=== PATIENT | female | born 1965 | race Caucasian/White ===

== ENCOUNTER 2025-04-30 11:19 | Emergency (ER) | payer BC, SELFPAY ==
--- OUTSIDE RECORDS SUMMARY | 2025-04-30 11:22 | XMS_ITS | Clinical Summary ---
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 [email or web address] Allergies Active Allergy Reactions Criticality Noted Date Comments Atorvastatin Other, see comments 08/12/2015 leg pain Lisinopril Cough 01/12/2007 Penicillins Rash 06/11/2003 Medications * This document contains information received from the source organization and may not represent a complete record from that organization. Multiple Vitamins-Minerals (MULTIVITAMIN OR) Take 1 tablet by mouth daily (every 24 hours). 05/08/20 04 Active Cholecalciferol 2000 UNITS Take 1 Capsule (2,000 Units) by mouth daily. 01/04/20 12 Active blood glucose calibration low (SURECHEK CONTROL SOLUTION) LOW liquidIndications: Type II or unspecified type diabetes mellitus without mention of complication, not stated as uncontrolled (HRC) To calibrate meter 1 each 3 03/10/20 13 Active FREESTYLE lancets Use 1 Each to test daily. 100 Each 11 07/21/20 18 Active magnesium oxide (AKA MAG-OX) 500 MG tablet Take 1 Tablet (500 mg) by mouth daily. Active acetaminophen (TYLENOL) 500 MG tablet Take 1-2 Tablets by mouth every 6 hours as needed for Pain. 03/07/20 21 Active Cinnamon 500 MG Take 4 Capsules (2,000 mg) by mouth. Active Multiple Vitamin (MULTI-VITAMIN) tablet Take 1 Tablet by mouth daily. Active [place]-3 Fatty Acids (FISH OIL) 1000 MG capsule Take 1 Capsule (1,000 mg) by mouth. Active medical cannabis patient certifiedIndicatio ns:Acute right hip pain,History of fall,Neuropathic pain syndrome (non-herpetic),Camron n in both lower extremities,Pain in both hands,Left foot drop,Medical marijuana use Take as instructed .. Active CANNABIDIOL OR Take 1 Capsule by mouth every 24 hours as needed. Active chlorhexidine gluconate (PERIDEX) 0.12 % solution Take by mouth. 01/28/20 24 Active fluticasone propionate (FLONASE) 50 MCG/ACT nasal solutionIndication s:Nasal congestion Place 2 Sprays into both nostrils daily. 16 g 11 02/11/20 24 Active ezetimibe (ZETIA) 10 MG tabletIndications: High cholesterol Take 1 Tablet (10 mg) by mouth daily. 90 Tablet 3 06/05/20 24 025 Active semaglutide (OZEMPIC, 1 MG/DOSE,) 4 MG/3ML injectionIndicatio ns:Class 1 obesity due to excess calories with serious comorbidity and body mass index (BMI) of 32.0 to 32.9 in adult ([facility]),Type 2 diabetes mellitus without complication, without long-term current use of insulin ([facility]) Inject 1 mg subcutaneously once every week. 3 mL 6 06/05/20 24 Active levothyroxine (SYNTHROID) 112 MCG tabletIndications: Hypothyroidism, unspecified type ([facility]),Acquired hypothyroidism ([facility]) Take 1 Tablet (112 mcg) by mouth daily. 90 Tablet 3 06/05/20 24 Active buPROPion (WELLBUTRIN XL) 300 MG 24 hour release tabletIndications: Major depressive disorder, single episode, mild ([facility]),Class 1 obesity due to excess calories with serious comorbidity and body mass index (BMI) of 32.0 to 32.9 in adult (HRC) TAKE 1 TABLET BY MOUTH EVERY MORNING 90 Tablet 3 06/05/20 24 Active dilTIAZem CD (CARTIA XT) 120 MG 24 hour release capsuleIndications :Essential hypertension (HRC) Take 1 Capsule (120 mg) by mouth daily. 90 Capsule 3 06/05/20 24 Active empagliflozin (JARDIANCE) 10 MG tabletIndications: Stage 3b chronic kidney disease (HRC),Type 2 diabetes mellitus without complication, without long-term current use of insulin (HRC) Take 1 Tablet (10 mg) by mouth daily. 90 Tablet 3 06/05/20 24 Active DULoxetine (CYMBALTA) 60 MG capsuleIndications :Major depressive disorder, single episode, mild (HRC),Other polyneuropathy Take 1 Capsule (60 mg) by mouth daily. 90 Capsule 3 06/05/20 24 025 Active losartan (COZAAR) 100 MG tabletIndications: Essential hypertension (HRC),Stage 3b chronic kidney disease (HRC) Take 1 Tablet (100 mg) by mouth daily. 90 Tablet 3 06/05/20 24 025 Active pregabalin (LYRICA) 50 MG capsuleIndications :Neuropathic Pain Take 1 Capsule (50 mg) by mouth two times a day AND 2 Capsules (100 mg) daily at bedtime. Indications: Neuropathic Pain. 120 Capsule 5 10/06/20 24 Active blood glucose (FREESTYLE LITE) test stripIndications:I mpaired glucose tolerance test USE TEST STRIPS TO CHECK BLOOD GLUCOSE ONCE DAILY 100 Strip 3 12/17/19 Active Active Problems Problem Noted Date Diagnosed Date Paresthesia of both lower extremities 11/03/2024 Paresthesia of both hands 11/03/2024 Left foot drop 06/02/2023 High blood triglycerides 02/01/2023 Peripheral neuropathy 02/01/2023 Balance disorder 08/14/2022 Ambulates with cane 08/14/2022 Stage 3b chronic kidney disease 02/04/2022 Major depressive disorder, single episode, mild 10/14/2021 Neuropathic pain of lower extremity 12/24/2020 Adverse effect of statin 12/24/2020 Anticardiolipin antibody positive 07/21/2018 Overview (07/21/2018): Was tested when she was preg with her daughter LISA (obstructive sleep apnea) 01/29/2017 Raynaud phenomenon 06/08/2014 Essential hypertension 03/24/2003 Overview (06/09/2017): Hypertension Hypothyroidism 03/24/2003 Overview (06/09/2017): Hypothyroidism Acquired Obesity 03/24/2003 Type 2 diabetes mellitus wit h diabetic chronic kidney disease Hypertensive chronic kidney disease with stage 1 through stage 4 chronic kidney disease, or unspecified chronic kidney disease Resolved Problems Problem Noted Date Diagnosed Date Resolved Date Renal insufficiency 07/16/2021 02/05/20 22 Endometrial hyperplasia with atypia 03/07/2021 07/16/2021 Pelvic mass 02/10/2021 07/16/2021 Overview (02/10/2021): Added automatically from request for surgery [id number] Hx of herpes genitalis 12/24/202006/05 Complex endometrial hyperpla kay without atypia 12/24/2020 07/16/2021 Iron deficiency 04/28/2019 06/05/2024 Herpes simplex virus (HSV) infection 2007 12/24/2020 Overview (06/09/2017): LW Onset: 1979 ; Herpes Simplex Labialis Sleep apnea 12/07/2005 05/14/2014 Overview (06/09/2017): [facility] Mod[facility] LW Onset: [id number] ; Obstructive Sleep Apnea Hypopnea Impaired glucose tolerance test 08/17/2005 03/17/2017 Overview (06/09/2017): LW Onset: [id number] ; Glucose Intolerance (Impaired Tolerance) Female genital symptoms 07/24/200411/19 Overview (06/09/2017): LW Onset: 84Den23 ; Pelvic Pain Female Encounters Date Type Department Care Team Description 02/09/2025 9:30 AM CDT Office Visit [facility] [address] [address] Juju Freedman A, OD Type 2 diabetes mellitus without complication, without long-term current use of insulin (HRC) (Primary Dx); Examination of eyes and vision; Myopia with astigmatism and presbyopia, bilateral; Age-related nuclear cataract of both eyes 02/09/2025 Telephone [facility] [address] [address] Tia Hernández, PADeshaunC Prior Authorization For Medication (empagliflozin (JARDIANCE) 10 MG tablet/) from Last 3 Months Immunizations Immunization Administration Dates Next Due Flu Vac (3+ yrs) 08/01/2012,08/04/2010 Flu Vac Preserv Free (3+yrs) 08/01/2012,07/13/20 09 HepB Adult (Engerix-B, 20+ y rs, 3 dose series) 12/05/2018,07/21/2018,03/10/2018 Influenza (Flucelvax), Prese rv Free QIV 08/19/2023 Influenza IIV4 (Quadrivalent ) 0.5mL ([id number]) 08/17/2022,07/16/2021,06/26/2020,2018,07/21/2018,10/06/2017,08/22/2016 Influenza ccIIV3 6 months+ (Flucelvax) 07/21/2024 PCV20 ([id number]) 02/04/2022 PPSV23 (Pneumovax) 10/06/2017 Pfizer Bivalent 12+ 08/17/2022 Pfizer COVID-19 12+ 07/21/2024,08/19/2023 Pfizer Monovalent 12+ Purple Top 11/26/2021,05/0 05/2021,02/01/2021 TDAP (ADACEL) 06/09/2006 TDAP (BOOSTRIX) 03/05/2016 Zoster RZV (Shingrix) 11/03/2021,08/15/2021 Family History Medical History Relation Name Comments Cataract Father Dad Diabetes Father Dad Heart Disease Father Dad High Blood Pressure Father Dad Hypertension Father Dad Neuropathy Father Dad Cataract Mother Mom Depression Mother Mom Mental Disorder Mother Mom Hypertension Brother 1 Enzo Hypertension Brother 2 Jose Carlos Hypertension Brother 3 Will No Known Problems Daughter Jada Cancer Paternal Uncle Dad Hypertension Sister 1 Shanelle Tovar Wal[place] Neuropathy Sister 1 Shanelle Tovar [place] Diabetes Sister 2 Kathrin Hypertension Sister 2 Kathrin Amblyopia/Strabismus Negative Family History Cancer, Breast Negative Family History Cancer, Ovary Negative Family History Glaucoma Negative Family History Macular Degeneration Negative Family History Retinal Detachment Negative Family History Relation Name Status Comments Father Dad Mother Mom Brother 1 Enzo Alive Brother 2 Jose Carlos Alive Brother 3 Will Alive Daughter Jada Alive Paternal Uncle Dad Sister 1 Shanelle Tovar Ronyalfonso Alive Sister 2 Kathrin Social History Tobacco Use Types Packs/Day Years Used Date Smoking Tobacco: Former Cigarettes 1 - 02/20/2014 Smokeless Tobacco: Former Quit: 02/20/2014 Tobacco Cessation:Counseling Given: Not Answered Comments:Smoking History Packs/day: Alcohol Use Standard Drinks/Week Comments Not Currently 1 (1 standard drink = 0.6 oz pure alcohol) I have a drink every once in awhile AUDIT-C Answer Date Recorded Q1: How often do you have a drink containing alc ohol? 2-4 times a month 2020 Q2: How many drinks containi ng alcohol do you have on a typical day when you are drinking? 1 or 2 2020 Frequency of Binge Drinking Not on file 05/2020 PHQ-2 Answer Date Recorded PHQ-2 Score 1 06/05/2024 Hunger Vital Sign Answer Date Recorded Within the past 12 months, y ou worried that your food would run out before you got the money to buy more. Never true 06/04/20 24 Within the past 12 months, t he food you bought just didn't last and you didn't have money to get more. Never true 06/04/2024 PRAPARE - Transportation Answer Date Re corded In the past 12 months, has l ack of transportation kept you from medical appointments or from getting medications? No 05/18 In the past 12 months, has l ack of transportation kept you from meetings, work, or from getting things needed for daily living? No 06/04/2024 Housing Stability Vital Sign Answer Hernan e Recorded In the last 12 months, was t here a time when you were not able to pay the mortgage or rent on time? No 06/04/2024 In the past 12 months, how m any times have you moved where you were living? 0 06/04/2024 At any time in the past 12 m [facility], were you homeless or living in a long term (including now)? No 06/04/2024 Comments No Sex and Gender Information Value Date Recorded Sex Assigned at Not on file Legal Sex Female 4:44 AM CDT Gender Identity Not on file Sexual Orientation Not on file Occupation Industry Job Start Date Job End Date [employer] 3 Not on file Not on file Not on file Last Filed Vital Signs Vital Sign Reading Time Taken Comments Blood Pressure 110/78 06/05/2024 9:52 AM CDT Pulse 73 06/05/2024 9:52 AM CDT Temperature 36.8 C (98.2 F) 03/08/2021 2:01 PM CDT Respiratory Rate 14 05/01/2022 8:47 AM CDT Oxygen Saturation 97% 02/11/2024 9:48 AM CDT Inhaled Oxygen Concentration - - Weight 73.5 kg (162 lb) 06/05/2024 9:52 AM CDT Height 163.8 cm (5' 4.5) 06/05/2024 9:52 AM CDT Body Mass Index 27.38 06/05/2024 9:52 AM CDT Plan of Treatment Upcoming Encounters Date Type Department Care Team (Late st Contact Info) Description 05/08/2025 4:10 PM CDT Appointment [facility] [address] [place] [phone] 05/21/2025 1:50 PM CDT Appointment [facility] [address] [place], [place] [phone] Oscar Johnston MD [address] [facility] [address] [place], [place] [id number] 06/11/2025 10:00 AM CDT Appointment [facility] [address] [place] [phone] Tia Hernández PADeshaunC [address] [place] [address] Health Maintenance Due Date Last Done Comments Colonoscopy 01/17/2024 01/16/2019 Cervical Cancer Screening 10/12/20242018, 10/12/2019, 05/14/2014, Additional history exists Diabetes: Creatinine 04/21/2025 04/21/2024, 02/01/2023, 01/22/2023, Additional history exists Diabetes: Urine Microalbumin 04/22/202503/2024, 01/28/2023, 02/04/2022, Additional history exists Mammogram 04/24/2025 04/24/2024, 09/18, 08/06/2021, Additional history exists Diabetes: HGBA1C 05/06/2025 11/06/2024, 07/2024, 01/24/2024, Additional history exists Adult Preventive Visit 06/05/2025 , 06/02/2023, 02/04/2022, Additional history exists Diabetes: Foot Exam 06/05/2025 06/05/2024 ( Completed), 06/02/2023 (Completed), 02/04/2022 (Completed), Additional history exists Influenza Vaccine (#1) 2025 , 08/19/2023, 08/17/2022, Additional history exists Diabetes: Eye Exam 02/09/2026 02/09/2025, 0 02/09/2025, 04/24/2024, Additional history exists DTaP/Tdap/Td Vaccine (3 - Tdap) 03/05/2026 03/05/2016, 06/09/2006 Diabetes: Lipid Panel 11/06/2029 11/06/2024 , 05/27/2024, 06/22/2023, Additional history exists RSV Vaccine (1 - 1-dose 75+ series) 2039 HIV Screening (Preventive Services) Completed 10/06/2017 Hep C Screening (Preventive Services) Completed 10/06/2017 HepB Vaccine Completed 12/05/2018, 1001/2018, 03/10/2018 Zoster/Shingles Vaccine Completed 11/03/2021, 08/15 Pneumococcal Vaccine 50+ Yrs Completed 02/04/2022, 10/06/2017 COVID-19 Vaccine Completed 07/21/2024, 11/2022, 08/17/2022, Additional history exists HepA Vaccine Aged Out No longer eligi ble based on patient's age to complete this topic Hib Vaccine Aged Out No longer eligi ble based on patient's age to complete this topic IPV (Polio) Vaccine Aged Out No longe r eligible based on patient's age to complete this topic MCV4 Vaccine Aged Out No longer eligi ble based on patient's age to complete this topic Meningococcal B Vaccine Aged Out No l onger eligible based on patient's age to complete this topic Procedures Procedure Name Priority Date/Time Associated Diagnosis Comments LIPID PANEL & DIRECT LDL (IF NEEDED) Routine 11/06/2024 9:03 AM FINISHED STOCK INSPECTOR High cholesterol High blood triglycerides (HRC) HGB A1C Routine 11/06/2024 9:03 AM FINISHED STOCK INSPECTOR Type 2 diabetes mellitus without complication, without long-term current use of insulin (HRC) MM MAMMOGRAM SCREENING BILAT W 3D GRAYSON W CAD Routine 04/24/2024 1:35 PM CDT Encounter for screening mammogram for malignant neoplasm of breast ALBUMIN/CREAT RATIO Routine 04/22/2024 10:00 AM CDT Stage 3b chronic kidney disease (HRC) RENAL FUNCTION PANEL Routine 04/21/2024 4:16 PM CDT Stage 3b chronic kidney disease (HRC) CYTOLOGY (PAP) Routine 10/12/2019 3:17 PM FINISHED STOCK INSPECTOR Pap smear for cervical cancer screening ENDOSCOPY, COLON, SCREENING/DIAGNOS TIC Routine 01/16/2019 8:40 AM CDT Other iron deficiency anemia HIV 1/2 AG/AB 4TH GEN Routine 10/06/2017 9:58 AM FINISHED STOCK INSPECTOR Screening for HIV (human immunodeficiency virus) HEPATITIS C ANTIBODY, WITH REFLEX (ANTI-HCV) Routine 10/06/2017 9:58 AM [facility] Need for hepatitis C screening test from Last 3 Months or Most Recently Relevant to Health Maintenance Results * Lipid Panel & Direct LDL (if Needed) (11/06/2024 9:03 AM [facility]) Cholesterol 177 0 - 199 mg/dL 11/06/2024 3:55 PM [facility] Triglyceride 142 <=149 mg/dL 11/06/2024 3:55 PM [facility] HDL Cholesterol 45 >=40 mg/dL 3:55 PM [facility] LDL, Calculated 104 <130 mg/dL 3:55 PM [facility] Non HDL Chol, Calculated 132 <=159 mg/dL 11/06/2024 3:55 PM [facility] Cholesterol/HDL Ratio 3.9 <=5.0 11/06/2024 3:55 PM [facility] Hours Fasting 0.0 8 - 12 Hours 11/06/2024 3:55 PM [facility] Blood Venipuncture / Unknown 11/06/2024 9:03 AM FINISHED STOCK INSPECTOR 11/06/2024 9:03 AM [facility] Tia Hernández PA-C LAB_1 Final Result [facility] [address] [place] [address], [facility] * (ABNORMAL) Hgb A1C (11/06/2024 9:03 AM [facility]) Hemoglobin A1C 5.9(H) <=5.6 % 11/06/2024 5:42 PM [facility] Estimated Average Glucose (Calc) 123 < 117 mg/dL 11/06/2024 5:42 PM [facility] Comment:Estimated average gl ucose (eAG) converts A1c into glucose units (mg/dL) and estimates average glucose over the past approximately 3 months. The eAG reference interval (<117 mg/dL) corresponds to an A1c of <5.7%. Blood Venipuncture / Unknown 11/06/2024 9:03 AM FINISHED STOCK INSPECTOR 11/06/2024 9:03 AM FINISHED STOCK INSPECTOR Narrative [facility] - 11/06/2024 5:42 PM FINISHED STOCK INSPECTOR For patients not previously diagnosed with diabetes: 5.7-6.4%: Increased risk for diabetes 6.5% and greater: Diagnostic for diabetes For patients diagnosed with diabetes: <8.0%: Goal of therapy for ages 18-75 Clinicians may recommend a higher or lower goal for specific individuals. Tia Hernández PA-C LAB_1 Final Result [facility] [address] * MM Mammogram Screening Bilat W 3D [place] W CAD (04/24/2024 1:35 PM CDT) Anatomical Region Laterality Modality Breast Bilateral Mammography Impressions 04/24/2024 2:25 PM CDT : ACR BI-RADS Category 1: Negative RECOMMENDATION: Follow Up Imaging in 12 months - Bilateral The results and recommendations of this examination will be communicated to the patient. Narrative 04/24/2024 2:25 PM CDT MM MAMMOGRAM SCREENING BILAT W 3D GRAYSON W CAD performed on 04/24/24 Compared to: 10/13/2022 MM Mammogram Screening Bilat W CAD, 08/06/2021 MM Mammogram Screening Bilat W CAD, and 06/10/2020 MM Mammogram Screening Bilat W CAD FINDINGS: Bilateral screening mammogram was performed with the assistance of Computer-Aided Detection and breast tomosynthesis. There are scattered areas of fibroglandular density. There is no radiographic evidence of malignancy. Tia Hernández PA-C RAD MARÍA Final Result * Albumin/Creatinine Ratio,Random Urine (04/22/2024 10:00 AM CDT) Albumin/Creati nine Ratio, Urine, Random 7 <30 mg/g 04/22/2024 11:50 AM T [facility] Albumin, Urine, Random 3.6 mg/L 04/22/2024 11:50 AM T [facility] Creatinine, Urine, Random 50 >20 mg/dL mg/dL 04/22/2024 11:[address] [facility] Urine Non-blood Collection / Unknown 04/22/2024 10:00 AM CDT 04/22/2024 10:44 AM CDT us Not On File Provider LAB_1 Final Resul t [facility] [address] [place] [address] * (ABNORMAL) Renal Function Panel (04/21/2024 4:16 PM CDT) Sodium 140 136 - 145 mmol/L 04/22/2024 10:[address] [facility] Potassium 4.5 3.5 - 5.1 mmol/L 04/22/2024 10:[address] [facility] Chloride 100 98 - 109 mmol/L 04/22/2024 10:[address] [facility] CO2 29 20 - 29 mmol/L 04/22/2024 10:[address] [facility] Anion Gap 11 6 - 16 mmol/L 04/22/2024 10:[address] [facility] Calcium 9.8 8.4 - 10.4 mg/dL 04/22/2024 10:[address] [facility] BUN 16 7 - 26 mg/dL 04/22/2024 10:[address] [facility] Creatinine 1.60(H) 0.55 - 1.02 mg/dL 04/22/2024 10:[address] [facility] Albumin 3.9 3.5 - 5.0 g/dL 04/22/2024 10:[address] [facility] Phosphorus 4.0 2.3 - 4.7 mg/dL 04/22/2024 10:[address] [facility] Glucose 77 70 - 100 mg/dL 04/22/2024 10:[address] [facility] Comment:The given reference range is for the fasting state. Non-fasting reference range for glucose is 70 - 180 mg/dL. GFR, Estimated 37(L) >60 mL/min/1.7 3m2 04/22/2024 10:[address] [facility] Hours Fasting 9.0 8 - 12 Hours 04/22/2024 10:38 AM CDT [facility] Blood Venipuncture / Unknown 04/21/2024 4:16 PM CDT 04/21/2024 4:16 PM CDT us Not On File Provider LAB_1 Final Resul t [facility] [address] [place] [address] [address] [place] [address] * PAP Test (10/12/2019 3:17 PM FINISHED STOCK INSPECTOR) Case Report Pap Case: [id number] Authorizing Provider: Vilma Matos MD Collected: 10/12/2019 03:17 PM Ordering Location: [facility] Received: 10/12/2019 03:35 PM Services-DATABASE ADMINISTRATION PROJECT MANAGER First Screen: Suzanna Bo CT (ASCP) Rescreen: Genna Vázquez CT (ASCP) Specimen: Pap Test, Routine, Cervix/Endocervix 10/20/2019 10:42 AM FINISHED STOCK INSPECTOR [facility] Pap Specimen Adequacy Satisfactory for evaluation, endocervical/chang sformation zone component absent. 10/20/2019 10:42 AM FINISHED STOCK INSPECTOR [facility] Pap Interpretation Negative for intraepithelial lesion or malignancy (NILM). 10/20/2019 10:42 AM FINISHED STOCK INSPECTOR [facility] at 1042 FINISHED STOCK INSPECTOR Pap Other Findings Fungal organisms morphologically consistent with Nelly spp. 10/20/2019 10:42 AM FINISHED STOCK INSPECTOR [facility] Gross Description The specimen is received in SurePath fixative and properly labeled. 1 Pap-stained SurePath slide is prepared. 10/20/2019 10:42 AM FINISHED STOCK INSPECTOR [facility] Pap Disclaimer The Pap test is a screening test designed to aid in the detection of cervical cancer and its precursor lesions. It is not a diagnostic procedure and should not be used as the sole means of detecting cervical cancer. Both false-positive and false-negative reports may occur. 10/20/2019 10:42 AM FINISHED STOCK INSPECTOR [facility] Embedded Images 0 10:42 AM FINISHED STOCK INSPECTOR [facility] Other Specimen Type ENTIRE ENDOCERVIX / Unknown 10/12/2019 3:17 PM FINISHED STOCK INSPECTOR 10/12/2019 3:35 PM FINISHED STOCK INSPECTOR Comment:LMP: Patient's last menstrual period was 01/25/2019 (approximate). us Vilma Matos MD LAB PATHOLOGY Final Re sult [facility] [address] * Endoscopy, colon, diagnostic (01/16/2019 8:40 AM CDT) Anatomical Region Laterality Modality Other 01/16/2019 8:40 AM CDT Narrative 01/16/2019 8:40 AM CDT Patient Name: Shanelle Nuñez Procedure Date: 01/16/2019 8:40 AM Date of : 1965 Admit Type: Outpatient Age: 53 Note Status: Finalized Attending MD: Elsie Polanco MD Procedure: Colonoscopy Indications: Iron deficiency anemia Providers: lEsie Polanco MD, Vikki Duggan Referring MD: Sundar Chery MD Medicines: Midazolam 4 mg IV, Fentanyl 100 micrograms IV, O2 2 l/min per NC and CO2 for insufflation Complications: No immediate complications. Procedure: After I obtained informed consent, the scope was passed under direct vision. Throughout the procedure, the patient's blood pressure, pulse, and oxygen saturations were monitored continuously. The [id number] was introduced through the anus and advanced to 10 cm into the ileum. The colonoscopy was performed without difficulty. The patient tolerated the procedure well. The quality of the bowel preparation was good. Findings: The perianal and digital rectal examinations were normal. The terminal ileum appeared normal. Two sessile polyps were found in the sigmoid colon and descending colon. The polyps were 3 to 4 mm in size. These polyps were removed with a cold snare. Resection and retrieval were complete. The exam was otherwise without abnormality on direct and retroflexion views. Impression: - The examined portion of the ileum was normal. - Two 3 to 4 mm polyps in the sigmoid colon and in the descending colon, removed with a cold snare. Resected and retrieved. - The examination was otherwise normal on direct and retroflexion views. Recommendation: - Discharge patient to home. - Await pathology results. - Repeat colonoscopy for surveillance based on pathology results. - To visualize the small bowel, perform video capsule endoscopy. Procedure Code(s): --- Professional --- 31220, Colonoscopy, flexible; with removal of tumor(s), polyp(s), or other lesion(s) by snare technique Diagnosis Code(s): --- Professional --- D12.5, Benign neoplasm of sigmoid colon D12.4, Benign neoplasm of descending colon D50.9, Iron deficiency anemia, unspecified CPT copyright 2016 [employer]. All rights reserved. The codes documented in this report are preliminary and upon dumper mold cleaner review may be revised to meet current compliance requirements. Elsie Polanco MD 01/16/2019 9:14:23 AM This document has been electronically signed. Number of Addenda: 0 Note Initiated On: 01/16/2019 8:40 AM Endoscopy Report Procedure Note Elsie Polanco MD - 01/16/2019 Patient Name: Shanelle Nuñez Procedure Date: 01/16/2019 8:40 AM Date of : 1965 Admit Type: Outpatient Age: 53 Note Status: Finalized Attending MD: Elsie Polanco MD Procedure: Colonoscopy Indications: Iron deficiency anemia Providers: Elsie Polanco MD, Vikki Duggan Referring MD: Sundar Chery MD Medicines: Midazolam 4 mg IV, Fentanyl 100 micrograms IV, O2 2 l/min per NC and CO2 for insufflation Complications: No immediate complications. Procedure: After I obtained informed consent, the scope was passed under direct vision. Throughout the procedure, the patient's blood pressure, pulse, and oxygen saturations were monitored continuously. The [id number] was introduced through the anus and advanced to 10 cm into the ileum. The colonoscopy was performed without difficulty. The patient tolerated the procedure well. The quality of the bowel preparation was good. Findings: The perianal and digital rectal examinations were normal. The terminal ileum appeared normal. Two sessile polyps were found in the sigmoid colon and descending colon. The polyps were 3 to 4 mm in size. These polyps were removed with a cold snare. Resection and retrieval were complete. The exam was otherwise without abnormality on direct and retroflexion views. Impression: - The examined portion of the ileum was normal. - Two 3 to 4 mm polyps in the sigmoid colon and in the descending colon, removed with a cold snare. Resected and retrieved. - The examination was otherwise normal on direct and retroflexion views. Recommendation: - Discharge patient to home. - Await pathology results. - Repeat colonoscopy for surveillance based on pathology results. - To visualize the small bowel, perform video capsule endoscopy. Procedure Code(s): --- Professional --- 16701, Colonoscopy, flexible; with removal of tumor(s), polyp(s), or other lesion(s) by snare technique Diagnosis Code(s): --- Professional --- D12.5, Benign neoplasm of sigmoid colon D12.4, Benign neoplasm of descending colon D50.9, Iron deficiency anemia, unspecified CPT copyright 2016 [employer]. All rights reserved. The codes documented in this report are preliminary and upon dumper mold cleaner review may be revised to meet current compliance requirements. Elsie Polanco MD 01/16/2019 9:14:23 AM This document has been electronically signed. Number of Addenda: 0 Note Initiated On: 01/16/2019 8:40 AM Endoscopy Report Sundar Chery MD ET GI PROCEDURE ORDERABLES Erica l Result * HIV 1/2 Ag/Ab 4th Generation (10/06/2017 9:58 AM FINISHED STOCK INSPECTOR) HIV-1 p24 Ag and HIV-1/HIV-2 Ab Nonreactive Nonreactive PN SOFT 10/06/2017 9:58 AM FINISHED STOCK INSPECTOR 10/06/2017 1:30 PM FINISHED STOCK INSPECTOR Narrative PN SOFT - 10/06/2017 2:12 PM FINISHED STOCK INSPECTOR [place] [address] CLIA number [id number] Sundar Chery MD LAB_1 Final Result Performing Organization Address City/[facility] Co de Phone Number PN SOFT [address] [place] [address] * Hepatitis C Antibody, with Reflex (10/06/2017 9:58 AM FINISHED STOCK INSPECTOR) Hepatitis C Antibody Nonreactive Nonreactive PN SOFT 10/06/2017 9:58 AM FINISHED STOCK INSPECTOR 10/06/2017 1:30 PM FINISHED STOCK INSPECTOR Narrative PN SOFT - 10/06/2017 2:12 PM FINISHED STOCK INSPECTOR Performed at [facility], [facility] [place] [address] CLIA number [id number] Sundar Chery MD LAB_1 Final Result Performing Organization Address [facility] de Phone Number PN SOFT [address] [place] [address] from Last 3 Months or Most Recently Relevant to Health Maintenance Insurance [facility] LINK Advance Directives * Full Code (Latest Code Status on File) Date Activated Date Inactivated Comments 03/07/2021 3:59 PM 03/08/2021 5:23 PM Care Teams Logging Equipment Mechanic Relationship Specialty Start Date End Date Tia Hernández PA-C [address] [place] [address] PCP - General Physician Casing Man 12/17/20
--- OUTSIDE RECORDS SUMMARY | 2025-04-30 11:22 | XMS_ITS | Clinical Summary ---
Author Organization [facility] Address [address] [place] [id number] Care Team Providers Care Staff Developer Name Role Phone Vik Hira Primary Care Provider [phone] Allergies Active Allergy Reactions Criticality Noted Date Comments Atorvastatin Muscle Pain (Myalgia) 12/11/2019 Lisinopril Cough 12/11/2019 Penicillins Rash Low 12/11/2019 Medications aspirin 81 MG EC tablet Take 81 mg by mouth daily Active gabapentin (NEURONTIN) 400 MG capsule Take 400 mg by mouth 2 times daily Morning and evening Active gabapentin (NEURONTIN) 300 MG capsule Take 300 mg by mouth daily At late afternoon Active vitamin B-Complex Take 1 tablet by mouth daily Active diltiazem ER COATED BEADS (CARDIZEM CD/CARTIA XT) 120 MG 24 hr capsule Take 120 mg by mouth daily Active cholecalciferol 50 MCG (1999 UT) CAPS Take by mouth daily Active escitalopram (LEXAPRO) 10 MG tablet Take 10 mg by mouth daily Active glipiZIDE (GLUCOTROL XL) 2.5 MG 24 hr tablet Take 2.5 mg by mouth daily Active losartan (COZAAR) 100 MG tablet Take 100 mg by mouth daily Active metFORMIN (GLUCOPHAGE-XR) 500 MG 24 hr tablet Take 500 mg by mouth 2 times daily (with meals) Active metoprolol succinate ER (TOPROL-XL) 50 MG 24 hr tablet Take 100 mg by mouth daily Active Multiple Vitamins-Minera ls (MULTIVITAMIN PO) Take by mouth daily Active levothyroxine (SYNTHROID/LEVO THROID) 112 MCG tablet Take 112 mcg by mouth daily Active Turmeric 500 MG CAPS Take 500 mg by mouth daily To begin 1000 mg daily after surgery Active Social History Tobacco Use Types Packs/Day Years Used Date Smoking Tobacco: Former Cigarettes Q uit: 2012 Smokeless Tobacco: Never Alcohol Use Standard Drinks/Week Comments Yes 0 (1 standard drink = 0.6 oz pur e alcohol) 1 A MONTH Comments No Sex and Gender Information Value Date Recorded Sex Assigned at Not on file Legal Sex Female 3:20 AM SUPERVISOR POWER REACTOR Gender Identity Not on file Sexual Orientation Not on file Last Filed Vital Signs Vital Sign Reading Time Taken Comments Blood Pressure 123/82 07/09/2020 9:40 AM CDT Pulse 48 07/09/2020 9:40 AM CDT Temperature 36.3 C (97.4 F) 07/09/2020 9:40 AM CDT Respiratory Rate 18 07/09/2020 9:40 AM CDT Oxygen Saturation 97% 07/09/2020 9:40 AM CDT Inhaled Oxygen Concentration - - Weight 92.1 kg (203 lb) 07/09/2020 6:27 AM CDT Height 165.1 cm (5' 5) 07/09/2020 6:27 AM CDT Body Mass Index 33.78 07/09/2020 6:27 AM CDT Plan of Treatment Not on file Medical Devices Implanted Type Area Clinical Data Analyst Device Identifier Shelf Expiration Date Model / Serial / Lot Iud Contraceptive Device Mirena [id number] Implanted:Qty: 1 on 07/09/2020 by Vilma Perry MD at [facility] Contraceptive Device N/A: Uterus SULEMA 09/16/2022 [id number] / [id number] / Care Teams Staff Developer Relationship Specialty Start Date End Date Hira Chery PCP - General Internal Medicine 11/27/19
--- OUTSIDE RECORDS SUMMARY | 2025-04-30 11:22 | XMS_ITS | Clinical Summary ---
Author Organization [facility] Address [address] [place] [address] Care Team Providers Care Graduate Teacher Education Name Role Phone Pcp, No Primary Care Provider Unavailabl e Allergies Active Allergy Reactions Criticality Noted Date Comments Penicillins Rash 11/24/2011 Medications atenolol (TENORMIN) 50 mg tabletIndication s:Hypertension Take 1 tablet by mouth once daily. 0 11/08/2012 Active levothyroxine (SYNTHROID) 175 mcg tabletIndication s:Hypothyroidism Take 1 tablet by mouth once daily. 0 11/08/2012 Active losartan (COZAAR) 50 mg tabletIndication s:Hypertension Take 1 tablet by mouth once daily. 0 11/08/2012 Active Active Problems Problem Noted Date Diagnosed Date Hypertension Hypothyroidism Immunizations Immunization Administration Dates Next Due Influenza, IIV3 (Age >=3 years) 08/04/2010 Social History Tobacco Use Types Packs/Day Years Used Date Smoking Tobacco: Every Day Cigarettes Smokeless Tobacco: Never Comments:4 cigs a day Alcohol Use Standard Drinks/Week Comments Not Asked 0 (1 standard drink = 0.6 oz pur e alcohol) Comments Unknown Sex and Gender Information Value Date Recorded Sex Assigned at Not on file Legal Sex Female 7:59 AM BANANA LOADER Gender Identity Not on file Sexual Orientation Not on file Obstetrics History Last Filed Vital Signs Vital Sign Reading Time Taken Comments Blood Pressure 148/94 11/08/2012 5:41 PM BANANA LOADER Pulse 96 11/08/2012 4:57 PM BANANA LOADER Temperature 36.7 C (98 F) 11/08/2012 4:57 PM BANANA LOADER Respiratory Rate - - Oxygen Saturation - - Inhaled Oxygen Concentration - - Weight 89.5 kg (197 lb 6 oz) 11/08/2012 4:57 PM BANANA LOADER Height - - Body Mass Index - - Plan of Treatment Health Maintenance Due Date Last Done Comments Tetanus booster 1975 Depression screening for age 12+ 1976 HIV for age 15-65 1979 BMI (ht and wt on same day) for age 18+ 1982 Hepatitis C screening for ag e 18-79 1982 Pap test for age 21-65 1985 Colonoscopy through age 75 2009 Lipids for age 45-75 2009 Mammogram for age 45-75 2009 Pneumococcal series for age 50+ (1 of 1 - PCV) 2014 Zoster (shingles) series for age 50+ (1 of 2) 2014 COVID-19 vaccine series ( - 2023- season) 2024 Influenza Vaccine (#1) 2025 08/04/2010 RSV vaccine for adults or (1 - 1-dose 75+ series) 2039 Hepatitis B series for 19+ Aged Out N o longer eligible based on patient's age to complete this topic Insurance [place] [id number] Care Teams Graduate Teacher Education Relationship Specialty Start Date End Date Pcp, No . PCP - General 07/17/10
[2025-04-30 11:32] VITALS: BP 109/74; PULSE 90; RESP 20; TEMP 36.4; O2SAT 98; BMI 25.0
--- NOTE | 2025-04-30 11:44 | CRLHL7_ITS ---
For Patients: As a result of the Cures Act, medical imaging exams and procedure reports are released immediately into your electronic medical record. You may view this report before your referring provider. If you have questions, please contact your health care provider. INDICATION: : Chest pain COMPARISON: None TECHNIQUE: Two view(s) of the chest FINDINGS: The cardiomediastinal silhouette and pulmonary vasculature are unremarkable. There is no focal airspace consolidation, pleural effusion, or pneumothorax. Stable chronic elevation of the right hemidiaphragm. No displaced fractures. IMPRESSION: No acute cardiopulmonary process. Dictated by Tae Pires MD @ 04/30/2025 12:16:16 PM (Electronically Signed)
[2025-04-30] MEDS: NITROGLYCERIN 0.4 MG TAB.SUBL SUBLINGUAL (12:06)
[2025-04-30 12:22] LABS: Hematocrit 45.7 % (33.0-51.0); Hemoglobin* 15.3 gm/dL (12.0-16.0); Immature Granulocytes Abs Auto 0.01 K/uL (0.00-0.30); Immature Granulocytes Pct Auto 0.1 %; Lymphocytes Absolute Auto 1.52 K/uL (0.90-2.90); Mean Corpuscular HGB Conc 34 gm/dL (32-36); Mean Corpuscular Hemoglobin 28 pg (26-34); Mean Corpuscular Volume 84 fL (80-100); RDW Coefficient of Variation % 13.7 % (11.5-15.5); Red Blood Count 5.42 m/uL (4.00-5.20); White Blood Count* 6.94 K/uL (4.50-11.00)
[2025-04-30 12:31] LABS: Slide Review Reflex No
[2025-04-30 12:34] LABS: Chloride* 101 mmol/L (96-114); Potassium* 4.0 mmol/L (3.6-5.1); Sodium* 138 mmol/L (135-149)
[2025-04-30 12:36] LABS: Blood Urea Nitrogen* 23 mg/dL (7-30); Creatinine* 1.4 mg/dL (0.5-1.5); Est. Creatinine Clearance* 40.00; Estimated Glomerular Filt Rate 43 ml/min
[2025-04-30 12:37] LABS: Anion Gap 8 mEq/L (7-15); Calcium* 9.3 mg/dL (8.4-10.6); Carbon Dioxide* 29 mmol/L (20-32); Glucose* 115 mg/dL (60-115)
[2025-04-30 12:38] LABS: D Dimer Quantitative* 0.32 ug/ml (0.00-0.50)
[2025-04-30 12:53] LABS: NT Pro B Type NatriureticPept* < 20 pg/mL (See Note)
--- NOTE | 2025-04-30 12:58 | ED.CHESTPAIN ---
HPI - Chest Pain General Date Seen: 04/30/25 Chief Complaint: Chest Pain Stated Complaint: Chest tight, short of breath, jaw/shoulder pain Time Seen by Provider: 04/30/25 11:36 Source: patient Mode of arrival: ambulatory Limitations: no limitations History of Present Illness HPI narrative: Patient is a 59-year-old female presenting to the emergency department for chest pain. See start yesterday she started developing some chest pain while she was doing some errands. Was also having shortness of breath with it. States the chest pain started she noticed radiation to her left jaw and not today it is also radiating to her left shoulder. She describes as a tightness sensation. Denies ever having pain like this before. She has no history of heart disease but both her parents had MIs in their 70s. She has no history of blood clots. Pain was persisting throughout the day so she decided to come in to get evaluated. States pain does improvement she put her feet up in her recliner. Denies fevers, chills, weakness, numbness, headaches, vision changes, abdominal pain, diarrhea, constipation. No other concerns noted at this time. She is complaining about some back pain to she states. She states the back pain has been going on for a while and is not seem any different than her typical back pain. Describes as a dull ache mostly to her posterior left shoulder and scapular region. Related Data Home Medications ?Medication ?Instructions ?Recorded ?Confirmed bupropion HCl 300 mg 24 hr tablet, 300 mg PO DAILY 04/30/25 04/30/25 extended release chlorhexidine gluconate 0.12 % 04/30/25 mouthwash diltiazem HCl 120 mg 120 mg PO DAILY 04/30/25 04/30/25 capsule,extended release 24 hr (Cartia XT) duloxetine 60 mg capsule,delayed 60 mg PO DAILY 04/30/25 04/30/25 release empagliflozin 10 mg tablet 10 mg PO DAILY 04/30/25 04/30/25 (Jardiance) ezetimibe 10 mg tablet 10 mg PO DAILY 04/30/25 04/30/25 levothyroxine 112 mcg tablet 112 mcg PO DAILY 04/30/25 04/30/25 losartan 100 mg tablet 100 mg PO DAILY 04/30/25 04/30/25 pregabalin 50 mg capsule PO 04/30/25 semaglutide 2 mg/dose (8 mg/3 mL) mg subcut 04/30/25 subcutaneous pen injector (Ozempic) Allergies Allergy/AdvReac Type Severity Reaction Status Date / Time Penicillins Allergy Intermediate Rash Verified 04/30/25 11:29 Review of Systems Status of ROS Reports: 10 or more systems reviewed and unremarkable except as noted in History and below Exam Narrative Exam Narrative: Const: Well-nourished, Well-developed, in mild distress Eyes: PERRL, no conjunctival injection, and symmetrical lids HENT: Atraumatic external nose and ears. Moist mucous membranes. Neck: Symmetric, trachea midline, No thyromegaly. CVS: RRR, No murmurs or gallops. Peripheral pulses 2+ and equal in all extremities RESP: Unlabored respiratory effort. Clear to auscultation bilaterally. GI: Nontender/Nondistended, No rebound or guarding. MSK:Extremities w/o deformity, Normal Active ROM Skin: Warm, Dry. No rashes or lesions. Neuro: Normal Muscle tone, No focal neurological deficits. Psych: Awake, Alert, & Oriented x3. Appropriate mood and affect. Const Vital Signs, click to edit/add: Vital Signs - 24 hr 04/30/25 11:32 Temperature 97.6 F Pulse Rate [Pulse Oximeter] 90 Respiratory Rate 20 Blood Pressure [Right Upper Arm] 109/74 Pulse Oximetry 98 Oxygen Delivery Method Room Air Course Vital Signs Vital signs: Initial Vital Signs Temperature 97.6 F 04/30/25 11:32 Temperature Source Temporal Artery Scan 04/30/25 11:32 Pulse Rate 90 04/30/25 11:32 Respiratory Rate 20 04/30/25 11:32 Blood Pressure 109/74 04/30/25 11:32 Blood Pressure Mean 85 04/30/25 11:32 Pulse Oximetry 98 04/30/25 11:32 Oxygen Delivery Method Room Air 04/30/25 11:32 Vital Signs Temperature 97.6 F 04/30/25 11:32 Pulse Rate 90 04/30/25 11:32 Respiratory Rate 20 04/30/25 11:32 Blood Pressure 109/74 04/30/25 11:32 Pulse Oximetry 98 04/30/25 11:32 Oxygen Delivery Method Room Air 04/30/25 11:32 Temperature 97.6 F 04/30/25 11:32 Pulse Rate 90 04/30/25 11:32 Respiratory Rate 20 04/30/25 11:32 Blood Pressure 109/74 04/30/25 11:32 Pulse Oximetry 98 04/30/25 11:32 Oxygen Delivery Method Room Air 04/30/25 11:32 Medications Administered Medications: Discontinued Medications Generic Name Dose Route Start Last Admin Trade Name Rosalind PRN Reason Stop Dose Admin Nitroglycerin 0.4 mg 04/30/25 11:44 04/30/25 12:06 Nitroglycerin 0.4 Mg Tab.Subl SUBLINGUAL 04/30/25 11:45 0.4 mg ONCE ONE Administration MDM - Chest Pain MDM Narrative Medical decision making narrative: Patient is a 59-year-old female presenting to the emergency department for chest pain. The differential diagnosis of chest pain is broad and includes common etiologies such as musculoskeletal strain, GERD, pneumonia, etc. More serious etiologies considered include PE, coronary artery disease, pneumothorax, aortic dissection, aortic aneurysm. Will do EKG and troponin to look for signs of coronary artery disease or other cardiac abnormalities. She looks overall stable with stable vital signs and I do not believe she is having an aortic dissection or aortic aneurysm. Will do a D-dimer to look for signs of a PE. Will also order CBC, BMP, BNP, magnesium, viral swabs. Also give a dose of nitroglycerin to see if that helps with her symptoms. Patient's lab work returned showing no acute abnormalities at all. Everything is within normal limits abnormalities at all. Everything is within normal limits. D-dimer within normal limits. Troponin is less than 0.01, BNP is under 20, viral swabs are negative. Chest x-ray reviewed by myself the radiologist shows no acute concerning abnormalities. EKG shows no acute concerning abnormalities. We did give her dose of nitro and she does feel like it helped with her breathing and chest pain slightly. Considering her symptoms have been going on since yesterday morning I do not believe repeat troponin is necessary. I do think she would benefit from a stress test which will be ordered for tomorrow. She will be discharged. Heart score is 3 Lab Data Labs: Lab Results 04/30/25 Range/Units 12:00 WBC 6.94 (4.50-11.00) K/uL RBC 5.42 H (4.00-5.20) m/uL Hgb 15.3 (12.0-16.0) gm/dL Hct 45.7 (33.0-51.0) % MCV 84 (80-100) fL MCH 28 (26-34) pg MCHC 34 (32-36) gm/dL RDW Coeff of Hari 13.7 (11.5-15.5) % Plt Count 155 (140-440) K/uL Neut % (Auto) 69.6 (42.0-72.0) % Lymph % (Auto) 21.9 (20-44) % Kent % (Auto) 7.3 (0.0-11.0) % Eos % (Auto) 0.7 (0.0-7.0) % Baso % (Auto) 0.4 (0.0-3.0) % Neut # (Auto) 4.82 (1.7-7.0) K/uL Lymph # (Auto) 1.52 (0.90-2.90) K/uL Kent # (Auto) 0.50 (0.00-0.90) K/UL Eos # (Auto) 0.05 (0.00-0.50) K/uL Baso # (Auto) 0.03 (0.00-0.30) K/uL Abs Immat Gran (auto) 0.01 (0.00-0.30) K/uL Imm/Tot Granulo (auto) 0.1 % D-Dimer Quant (PE/DVT) 0.32 (0.00-0.50) ug/ml Sodium 138 (135-149) mmol/L Potassium 4.0 (3.6-5.1) mmol/L Chloride 101 (96-114) mmol/L Carbon Dioxide 29 (20-32) mmol/L Anion Gap 8 (7-15) mEq/L BUN 23 (7-30) mg/dL Creatinine 1.4 (0.5-1.5) mg/dL Estimated Creat Clear 40.00 Estimated GFR 43 ml/min Glucose 115 (60-115) mg/dL Calcium 9.3 (8.4-10.6) mg/dL Magnesium 2.5 (1.5-2.6) mg/dL Troponin I < 0.01 (0.01-0.04) ng/mL NT-Pro-B Natriuret Pep < 20 (See Note) pg/mL SARS-CoV-2 (PCR) Negative SARS-CoV-2 (Negative) Influenza Type A (PCR) Negative PCR FLU A (Negative) Influenza Type B (PCR) Negative PCR FLU B (Negative) RSV (PCR) Negative PCR RSV (Negative) Imaging Data Chest x-ray: Attestation: I have reviewed the pertinent imaging results. Radiologist's impression: No acute cardiopulmonary process. Dictated by Tae Pires MD @ 04/30/2025 12:16:16 PM ECG Data Attestation: I personally reviewed and interpreted this ECG as follows: Prior ECG tracings: not available for review Interpretation: Normal sinus rhythm with a rate of 86 beats per minute, normal intervals, normal axis, no ST or T-wave abnormalities Discharge Plan Discharge Prescriptions: No Action diltiazem HCl [Cartia XT] 120 mg capsule,extended release 24hr 120 mg PO DAILY losartan 100 mg tablet 100 mg PO DAILY levothyroxine 112 mcg tablet 112 mcg PO DAILY ezetimibe 10 mg tablet 10 mg PO DAILY bupropion HCl 300 mg tablet extended release 24 hr 300 mg PO DAILY duloxetine 60 mg capsule,delayed release(DR/EC) 60 mg PO DAILY pregabalin 50 mg capsule PO chlorhexidine gluconate 0.12 % mouthwash Patient Comments: SWISH AND SPIT 0.5 OZ BY MOUTH TWICE DAILY FOR 7 DAYS Jardiance 10 mg tablet 10 mg PO DAILY Ozempic 2 mg/dose (8 mg/3 mL) pen injector SUBCUT Patient Comments: [NO ORIGINAL SIG]
[2025-04-30 13:03] LABS: PCR FLU A Negative PCR FLU A (Negative); PCR FLU B Negative PCR FLU B (Negative); PCR RSV Negative PCR RSV (Negative); SARS PCR* Negative SARS-CoV-2 (Negative)
== END 2025-04-30 13:54 | disposition home or self-care (01) ==
PROVIDERS: Emergency Provider Student in an Organized Health Care Education/Training Program
DX: R07.9 Chest pain, unspecified (principal); R06.02 Shortness of breath; M54.9 Dorsalgia, unspecified
CPT/HCPCS: 36415; 71046; 80048; 83735; 83880; 84484; 85025; 85379; 87631; 99284; A9270

== ENCOUNTER 2025-05-08 07:39 | Outpatient (CLI) | payer BC, SELFPAY ==
[2025-05-08] MEDS: REGADENOSON 0.4 MG/5 ML SYRINGE IVP (09:15)
[2025-05-08 09:38] VITALS: BP 124/80; PULSE 73; RESP 20; O2SAT 100
--- NOTE | 2025-05-08 11:00 | W.PM.STED ---
Stress Test Note Date Date of test: 05/08/25 Providers Primary care provider: Tia Hernández Stress test physician: Chris Mccord Stress Test Note Stress test ordered: Lexiscan Indication for test: Chest pain Stress test medicine: Lexiscan Results discussion: Patient is a very nice lady presents for the above test, cardiac stress test medical history is reviewed in detail, I discussed the risks benefits side effects of the test with her and she would like to proceed. Walking Lexiscan done. Pretest EKG shows normal sinus rhythm, ventricular rate of 70 blood pressure 128/72. No acute ST wave changes are noted. Standard infusion of Lexiscan is done, along with radionucleotide tracer. She tolerated this well, with absence of any significant symptoms. Her maximum heart rate was 112, maximum blood pressure was 130/80. Subjectively she was negative objectively there is no change in her EKG, she had no dysrhythmias. Impression: Negative electrographic portion of Lexiscan, subjectively negative Follow up suggested: Await nuclear imaging review, clinical correlation with this will be needed, patient complications the left this testing facility in good condition.
== END 2025-05-08 07:40 | disposition home or self-care (01) ==
LOC: STRESS 07:40
PROVIDERS: PCP Physician Assistant; Visit Provider Family Medicine
DX: R07.9 Chest pain, unspecified (principal)
CPT/HCPCS: 78452; 93016; 93017; A9500; J2785